=== PATIENT | male | born 1965 | race Caucasian/White ===

== ENCOUNTER → 2024-03-21 15:01 | Outpatient (REF) | payer BC, SELFPAY | LOC: RAD 15:01 | PROVIDERS: ATTENDING PHYSICIAN Surgery Vascular Surgery | DX: I73.9 Peripheral vascular disease, unspecified (principal) | CPT/HCPCS: 93922; 93925 ==

== ENCOUNTER → 2024-09-22 07:55 | Outpatient (REF) | payer BC, SELFPAY | LOC: RAD 07:55 | PROVIDERS: ATTENDING PHYSICIAN Surgery Vascular Surgery; FAMILY PHYSICIAN Family Medicine | DX: I73.9 Peripheral vascular disease, unspecified (principal) | CPT/HCPCS: 93922; 93925 ==

== ENCOUNTER → 2024-10-13 08:21 | Outpatient (REF) | payer BC, SELFPAY | LOC: RAD 08:21 | PROVIDERS: ATTENDING PHYSICIAN Surgery Vascular Surgery; FAMILY PHYSICIAN Family Medicine | DX: I73.9 Peripheral vascular disease, unspecified (principal) | CPT/HCPCS: 75635; Q9967 ==

== ENCOUNTER → 2024-11-17 11:46 | Outpatient (REF) | payer BC, SELFPAY | LOC: DHCBC/DCA 11:46 | PROVIDERS: ATTENDING PHYSICIAN Internal Medicine Cardiovascular Disease; FAMILY PHYSICIAN Family Medicine | DX: Z01.810 Encounter for preprocedural cardiovascular examination (principal); I25.10 Atherosclerotic heart disease of native coronary artery without angina pectoris; I73.9 Peripheral vascular disease, unspecified | CPT/HCPCS: 78452; 93017; A9500; J2785 ==

== ENCOUNTER 2024-12-22 08:55 | Inpatient (IN) | payer BC, SELFPAY ==
[2024-12-19 09:59] VITALS: BMI 35.4
[2024-12-19 11:05] LABS: % Basophils 0.5 % (0-2); % Eosinophils 2.7 % (0-6); % Immature Granulocytes 0.4 % (0-0.5); % Lymphocytes 28.5 % (20.5-51.1); % Neutrophils 60.9 % (42.2-75.2); Absolute Basophils 0.1 10^3/uL (0-0.2); Absolute Eosinophils 0.3 10^3/uL (0-0.7); Absolute Monocytes 0.7 10^3/uL (0.1-0.6); Absolute Neutrophils 6.3 10^3/uL (1.4-6.5); Hematocrit 45.4 % (39.0-52.0); Hemoglobin 15.5 g/dL (13.0-18.0); Mean Corp Hgb Conc. 34.1 g/dL (33.0-37.0); Mean Corpuscular Hgb 32.7 pg (27.0-31.0); Mean Corpuscular Volume 95.8 fL (80.0-94.0); Mean Platelet Volume 9.9 fL (7.4-10.4); Nucleated Red Blood Cells % 0 % (-); Platelet Count 192 10^3/uL (130-400); Red Blood Cell Count 4.74 10^6/uL (4.70-6.10); Red Cell Dist. Width 12.3 % (11.5-14.5); White Blood Cell Count 10.4 10^3/uL (4.8-10.8)
[2024-12-19 11:14] LABS: INR 0.99; PT 13.4 Sec (11.4-14.6)
[2024-12-19 11:15] LABS: APTT 27.5 Sec (23.4-35.0)
[2024-12-19 11:37] LABS: Blood Urea Nitrogen 17 mg/dl (9-20); Calcium 9.5 mg/dl (8.4-10.2); Carbon Dioxide 25 mmol/L (22-30); Chloride 102 mmol/L (98-107); Estimated Creatinine Clearance 91 ml/min; Glucose 123 mg/dl (70-99); Potassium 4.2 mmol/L (3.5-5.1); Sodium 138 mmol/L (135-145); eGFR > 60.00
[2024-12-22] VITALS (13 sets, daily range): BP systolic 87–121; BP diastolic 54–76; BMI 33.8
--- NOTE | 2024-12-22 07:57 | HP.FOC2 ---
Focused History & Physical
Chief Complaint
HPI:
Chief Complaint: Right leg pain/claudication
HPI / Indication for Planned Procedure: 59-year-old male here today for planned right lower extremity bypass and right femoral endarterectomy possible on table angiogram. Patient presents today at baseline health. No recent illnesses or changes in
his health or home medications. Past medical history as noted below
Relevant Past Medical History: Other (COPD, diabetes type 2, CAD, hypertension, hyperlipidemia, history of TIA, open heart surgery 2018, bladder surgery.)
Relevant Social History: Tobacco Use
Relevant Family History: Negative
Relevant Past Surgical History: Positive for (See above)
Review of Systems
Review of Pertinent Systems: All Systems Negative
Medication
See Medication form for detailed medications: Yes
Medication List (including Herbals & OTC):
metoprolol succinate 25 mg tablet,extended release 24 hr 25 mg PO DAILY 12/14/17
rosuvastatin 20 mg tablet 20 mg PO DAILY 12/14/17
famotidine 40 mg tablet 40 mg PO HS 06/09/23
metformin 500 mg tablet 500 mg PO BID 06/09/23
aspirin 81 mg tablet,delayed release 81 mg PO HS 06/11/23
cilostazol 50 mg tablet 50 mg PO BID 06/11/23
Medications Reviewed: Yes
Allergies and Reactions
Patient has Allergies: Yes
Noted Allergies and Reactions:
Allergy/AdvReac Type Severity Reaction Status Date / Time
bee pollen Allergy Swelling Verified 12/13/24 13:30
cat dander Allergy Unknown Verified 12/13/24 13:30
dog dander Allergy Unknown Verified 12/13/24 13:30
No Known Drug Allergies Allergy NA Verified 12/13/24 13:30
shellfish derived Allergy Unknown Verified 12/13/24 13:30
Pertinent Physical Exam
All Other Systems: Negative
Head/Neck: Normal
Lungs: Normal
Heart: Normal
Abdomen: Normal
Extremities: Other
Neurological: Normal
Diagnosis / Assessment
PAD/claudication
Plan / Procedure
Planned right femoral endarterectomy, right lower extremity bypass, possible on table angiogram with Dr. Quick today.
Anesthesia/Sedation to be done by Anesthesia Provider: Yes
[2024-12-22] MEDS: BACTROBAN NASAL 1 GRAM NASAL (09:34)
[2024-12-22] MEDS: NSS 500 IV (09:34)
[2024-12-22] MEDS: PERIDEX 0.12% ORAL RINSE 15 ML PO (09:34)
[2024-12-22 09:46] LABS: Glucose - Point of Care 136 mg/dl (70-99)
--- NOTE | 2024-12-22 11:31 | W.SUR.PREOP ---
Pre-Operative Surgical Note
-
I have examined this patient prior to the performance of the scheduled procedure.
The patient's condition is unchanged from the time of the current History and
Physical and the patient is able to undergo the scheduled procedure.
[2024-12-22 12:39] LABS: Glycohemoglobin (HgbA1c) 6.6 % (4.0-5.6)
[2024-12-22 15:39] LABS: Glucose - Point of Care 146 mg/dl (70-99)
--- NOTE | 2024-12-22 17:02 | W.SUR.POST ---
Surgical Immediate Post Op
Note
Pre Op Diagnosis: PAD/claudication
Post Op Diagnosis: Same
Procedure Performed: Right femoral endarterectomy with saphenous vein patch and right femoral to below-knee popliteal artery bypass with ringed Propaten graft
Primary Surgeon: Abdelrahman
Assist: Brie SEGOVIA
Anesthesia: General
Estimated Blood Loss: 50 cc
Fluids: See anesthesia flowsheet
Drains/Shunts: None
Specimens/Cultures: Right femoral plaque
Doppler/Duplex/Angio (Y/N): Y
Complications: None
Operative Findings: Palpable PT and DP pulse upon completion
[2024-12-22 17:32] LABS: Hematocrit 41.5 % (39.0-52.0); Hemoglobin 14.1 g/dL (13.0-18.0); Mean Corpuscular Hgb 33.1 pg (27.0-31.0); Mean Corpuscular Volume 97.4 fL (80.0-94.0); Mean Platelet Volume 9.6 fL (7.4-10.4); Platelet Count 157 10^3/uL (130-400); Red Blood Cell Count 4.26 10^6/uL (4.70-6.10); Red Cell Dist. Width 12.2 % (11.5-14.5); White Blood Cell Count 15.4 10^3/uL (4.8-10.8)
[2024-12-22 17:49] LABS: Blood Urea Nitrogen 11 mg/dl (9-20); Calcium 8.6 mg/dl (8.4-10.2); Carbon Dioxide 24 mmol/L (22-30); Chloride 102 mmol/L (98-107); Estimated Creatinine Clearance 111 ml/min; Glucose 181 mg/dl (70-99); Potassium 4.3 mmol/L (3.5-5.1); Sodium 135 mmol/L (135-145); eGFR > 60.00
--- NOTE | 2024-12-22 17:54 | OR.RPT ---
Operative Report
Operative Report
PROCEDURE DATE: 12/22/2024
Preoperative diagnosis: Debilitating right lower extremity claudication.
Postoperative diagnosis: Same
Procedure:
1. Exploration of right distal greater saphenous vein.
2. Extensive right ilio-femoral endarterectomy (distaly right EIA, common femoral, profunda) with saphenous vein patch angioplasty.
3. Right femoral to [id number] popliteal artery bypass with 8 mm ringed Propaten graft.
Surgeon: Abdelrahman
Call Center Professional: FABRIZIO Baird, required for all aspects of procedure including assistance with traction/countertraction, following of suture line, assistance with closure.
Complications: None
Anesthesia: General
Indications for procedure:
Debilitating claudication. Patient had difficulty functioning at work. I have strongly recommended risk factor management and exercise regimen. He felt he was exercising and not gaining any headway. He felt very disabled at work and even in his
personal life. We discussed extensively that he had no simple endovascular solution. Therefore surgical risks were discussed extensively. Patient understood all wished to proceed with revascularization strategy. I discussed with him that his
vein was marginal in the right leg. And therefore if vein was not usable I did not wish to bypass to a below the knee tibial target for claudication. Discussed in that setting would do a bypass with prosthetic to the above-knee popliteal artery,
cognizant of the fact that there is some plaque disease and he is behind the knee popliteal artery and origin of tibial. But it did not appear severely flow-limiting based on imaging. In addition I discussed that he had extensive common femoral
and profunda origin plaque/stenosis. Discussed endarterectomy of that as well. All these procedural aspects risk/benefit/alternatives all fully discussed. Patient understood all wished to proceed.
Description of procedure:
Patient was identified brought to the operating room placed on the table in supine position. After the adequate administration of anesthesia he was prepped and draped in the standard surgical fashion. A standard preoperative timeout was undertaken
and everybody was in agreement the plan. A longitudinal incision was made in the right groin with a 15 blade that was carried through skin subcutaneous tissue with electrocautery. I then dissected down to the level of the inguinal ligament. Note
any crossing lymphatic type structures or vessels in my dissection down to the level of the inguinal ligament and the vessels were ligated between silk ties and divided. I carefully then dissected the common femoral artery as it emerged from
underneath inguinal ligament. It was noted to be plaque laden but soft anteriorly. I then continued to dissect on the anterior surface of the common femoral artery until identified the superficial femoral artery. I circumferentially dissected
the superficial femoral artery which was heavily plaque laden and nonpulsatile. I passed a vessel loop around it and used a vessel loop to retract the vessel slightly medially. Now I dissected the profunda origin carefully. Crossing vein branches
were ligated between silk ties and divided to allow exposure of the profunda beyond its first branch point. As such I dissected about 3 cm or 4 cm onto the origin of the profunda. I now was able to get a soft point beyond the first branch point.
A vessel loop was passed around after careful circumferential dissection. Now I dissected underneath the inguinal ligament. There was heavy plaque that extended into the distal external iliac artery. The circumflex iliac arteries were carefully
circumferentially dissected and controlled with Vesseloops. Just proximal to here the distal external iliac artery was soft. I carefully circumferentially dissected and passed a vessel loop around it. In doing this dissection even before I could
fully dissected the circumflex iliac vein or vein of sorrow was avulsed and I had to quickly clip it on either side to control it. This was successfully done.
At this point I decided to turn my attention to the posterior tibial artery exposure. An incision was made about a fingerbreadth inferior to the tibia and the proximal to mid medial calf. It was just carried through the skin at which point I
became concerned that the vein might not be viable in which case I would not want to fully expose the posterior tibial artery and create a muscular dissection. Therefore I then made a separate incision a few centimeters more posterior on the calf
where I marked the continuation of the saphenous vein. I carried this through skin subcutaneous tissue and identified the vein. It was noted to be a very small vein at this juncture. Therefore though the vein was more suitably sized proximally
based on the imaging, the vein was definitely too small here. At this point I felt that this vein would not be usable and at this point I confirmed my plan that I would not be bypassing to the below-knee target vessel with the prosthetic graft.
These incisions were therefore then closed with Vicryl suture and Monocryl subcuticular stitch. Dermabond applied to both the sites. I now made an incision in the medial distal thigh that was carried through the skin subcutaneous tissue. Using
the electrocautery I dissected through the crural fascia layer and then identified the sartorius muscle. This was reflected posteriorly and I continued dissecting to the loose areolar fatty tissue and identified the above the knee popliteal artery.
Carefully I circumferentially dissected approximately. There is still noted to be some plaque in the artery here. However I continues to dissected well distally until I noted good soft artery. I then circumferentially dissected it and passed a
vessel loop around at that point. I listened with a Doppler and there is a reasonable Doppler signal here. Therefore I felt that it was a reasonable target distally. Now I used a Rashad tunneler to create a subsartorial tunnel and passed an 8 mm
ringed [place] Propaten graft through the tunnel.
Now I exposed the greater saphenous vein in my groin incision and made a separate small skip incision to expose a suitable length of it (approximately 10 cm) so that I had reasonable saphenous vein for patch. Given the patient's habitus, given the
fact that I would be using prosthetic graft, I wish to mitigate his infection risk and thereby use a saphenous vein patch instead of a prosthetic patch. Once I dissected and mobilized the suitable length of vein, I give the patient appropriate dose
of heparin (approximately 100 units/kg). After the heparin was allowed to circulate, I clamped the distal profunda with a profunda clamp was soft. Vesseloops on other branches that had been double looped were now tightened. I then placed a clamp
across the distal external iliac artery where it was soft. I now made an arteriotomy on the profundofemoral soft with an 11 blade and started to extended cephalad. (With a Levy scissor). However, I had continued bleeding. Therefore this alerted
me that there was another branch. I therefore quickly dissected posterior at the femoral bifurcation and identified another branch and I passed a vessel loop around it and double looped and tightened it. This controlled the bleeding. At this
point now I continued with my Levy scissor to extend my arteriotomy all the way to the proximal common femoral artery. There was heavy dense coral reef like plaque especially at the femoral bifurcation. The SFA was chronically occluded with heavy
plaque, and the profunda origin had near occlusive heavy plaque. There was dense plaque throughout the common femoral artery as well. I now used a Montrose to create an endarterectomy plane and endarterectomized the plaque starting in the common
femoral and profunda. I was able to tease the plaque out to reasonable endpoint in the profunda. I then grasped the plaque and cut it flush in the common femoral artery. I then grasped it and everted out of the origin of the SFA (everted at least
2 to 3 cm out of the origin of the SFA). The plaque was then sent off for specimen. Any fine debris throughout the endarterectomy field was removed with fine forceps. I then noted my proximal endpoint while the lumen was reasonable there was
still heavy posterior/lateral/medial plaque in the common femoral artery proximally and I felt I would not be able to take good suture bites here. Therefore I then grasped the plaque and used a Montrose to further endarterectomized this plaque and
then teased it out all the way to the level of the clamp (distal external iliac artery). I released my clamp and quickly repositioned it slightly more cephalad. I now inspected my endpoint where the proximal plaque had come out and it was
excellently adherent. There was a nice ring of adherent normal intima at the proximal endpoint that I could see well. At this point is very satisfied. Distally on my profunda endpoint, I elected to place a couple tacking sutures just to make sure
the intima is nicely tacked using 6-0 Prolene tacking sutures. Now I used the greater saphenous vein that had exposed. I ligated proximally distally with heavy silk ties and clips. I then transected proximally distally and inflated open. There
is a very reasonable vein. I therefore then used this as a patch. I sewed a patch angioplasty/profundoplasty using a running 5-0 Prolene suture. Prior to completing and tying down my suture line I backbled the [place] arteries. I then completed
and tied in my suture line. I briefly released my clamps. A couple small bleeding points on the suture line were repaired with 6-0 Prolene [id number] suture. Now that hemostasis I reclamped the distal external iliac and profunda arteries. I
then made a patchotomy with an 11 blade on the vein patch. I extended with the Levy scissor. I now beveled the 8 mm ringed graft. I sewed an end-to-side anastomosis between the graft and the vein patch using a running [place] CV 6 suture. I
completed and tied down my suture line and then clamped the graft. I then released flow in the [place] arteries. Hemostasis was noted. I briefly flushed out the graft to de-air it. Now I clamped the graft in the groin incision. Now I turned my
attention again to the distal artery which was the above-knee popliteal artery. I placed a clamp on the artery distally where it was soft. I tightened my double looped vessel loop proximally on the artery. I now made an arteriotomy with 11 blade
and extended using a Levy scissor. There was some mild plaque but no significant luminal narrowing. And it was not severely hardened plaque. I now trimmed and beveled and de-ringed the distal aspect of the graft and sewed an end-to-side
anastomosis using a running [place] CV 6 suture. Prior to completing and tying down my suture line I backbled the [place] artery and flushed out the graft. I then completed and tied down my suture line. Now I released clamps on the [place] vessels and
then the graft clamp. There is excellent pulsatile flow into the popliteal artery beyond the anastomosis. Doppler confirmed an excellent significantly graft augmented signal. There was excellent significantly graft augmented signals at the
posterior tibial and dorsalis pedis on the foot. I actually could palpate a DP and PT pulse now on the foot. At this point is very satisfied. All incision sites were now irrigated. Meticulously hemostasis was achieved. Protamine was given to
reverse the heparin. The arterial exposure sites were closed in layers using 2-0 Vicryl deeper layers followed by 3-0 Vicryl deep dermal running layer followed by 4 Monocryl subcuticular suture layer. The small counterincision for saphenectomy was
closed with 3-0 Vicryl and 4-0 Monocryl running sutures as well. Dermabond and dressings were applied. The patient tolerated the procedure well. All sponge, needle, instrument counts were correct at the end of the case. The patient was
transported to the recovery room in good condition.
--- NOTE | 2024-12-22 19:19 | PTCARENOTE ---
Received pt from PACU into ICU rm [id number] @ 1830. Neurovascular check completed w HIGH SCHOOL MATH TUTOR- see flow sheet. Report given to oncoming SCRAPER LOADER OPERATOR and neurovascular checks completed @ bedside w nightshift RN.
[2024-12-22] MEDS: NOVOLOG FLEXPEN-LOW RESISTANCE SC (19:22)
[2024-12-22] MEDS: ROXICODONE 5 MG PO (19:43)
[2024-12-22] MEDS: HEPARIN 5000 UNITS SC (19:43)
[2024-12-22] MEDS: NSS 1000 IV (19:44)
[2024-12-22 20:18] LABS: TSH Reflex To Free T4 0.65 uIU/ml (0.47-4.68)
--- NOTE | 2024-12-22 20:31 | PTCARENOTE ---
Received patient AAOx3, following commands, drowsy. 7/10 pain in RLE, oxycodone given. Q1 neurovascular checks ongoing. Normal sinus, 70s, +1 LE edema. Doppler DP and PT pulses b/l. BP 120s-130s/60s-70s. Left radial judy zeroed, leveled, and
flushed. Lung sounds clear, shallow, on 4 liters nasal cannula saturating 92%. Positive bowel sounds, abdomen soft, round, nontender. Thermistor king in place draining yellow urine, normothermic. Right groin covered with primaseal dressing, CDI. 2
Incisions on RLE approximated, surgiglue intact, ecchymotic around incision. PIVs patent, WNL. Warm blankets and crackers with diet gingerale provided, call dominguez within reach.
[2024-12-22 20:37] LABS: Vitamin B12 237 pg/ml (239-931)
[2024-12-22] MEDS: FLOMAX 0.4 MG PO (21:07)
[2024-12-22] MEDS: PEPCID 40 MG PO (21:07)
[2024-12-22] MEDS: ASPIR LOW (ENTERIC COATED) 81 MG PO (21:07)
[2024-12-22] MEDS: DILAUDID 0.5 MG IV (21:13)
[2024-12-22 21:16] LABS: Glucose - Point of Care 184 mg/dl (70-99)
[2024-12-22] MEDS: NOVOLOG FLEXPEN 1 UNITS SC (22:09)
[2024-12-23] VITALS (9 sets, daily range): BP systolic 92–130; BP diastolic 59–73; PULSE 72; O2SAT 92; BMI 34.2
--- NOTE | 2024-12-23 00:08 | PTCARENOTE ---
Patient assessment unchanged from previous, covered with 1 unit of insulin. Call dominguez within reach, resting comfortably.
[2024-12-23] MEDS: DILAUDID 0.5 MG IV ×2 (04:39→16:38)
[2024-12-23] MEDS: NSS 1000 IV (04:39)
[2024-12-23 05:08] LABS: Hematocrit 37.9 % (39.0-52.0); Hemoglobin 13.3 g/dL (13.0-18.0); Mean Corp Hgb Conc. 35.1 g/dL (33.0-37.0); Mean Corpuscular Hgb 33.7 pg (27.0-31.0); Mean Corpuscular Volume 95.9 fL (80.0-94.0); Mean Platelet Volume 9.9 fL (7.4-10.4); Platelet Count 152 10^3/uL (130-400); Red Blood Cell Count 3.95 10^6/uL (4.70-6.10); Red Cell Dist. Width 12.1 % (11.5-14.5); White Blood Cell Count 17.8 10^3/uL (4.8-10.8)
[2024-12-23 05:18] LABS: INR 1.06; PT 14.3 Sec (11.4-14.6)
[2024-12-23 05:19] LABS: APTT 27.4 Sec (23.4-35.0)
[2024-12-23 05:35] LABS: Blood Urea Nitrogen 12 mg/dl (9-20); Calcium 8.5 mg/dl (8.4-10.2); Carbon Dioxide 26 mmol/L (22-30); Chloride 103 mmol/L (98-107); Estimated Creatinine Clearance 123 ml/min; Glucose 150 mg/dl (70-99); Potassium 4.4 mmol/L (3.5-5.1); Sodium 134 mmol/L (135-145); eGFR > 60.00
--- NOTE | 2024-12-23 06:11 | PTCARENOTE ---
Labs sent, dilaudid given x2 for pain per order, otherwise patient assessment unchanged from previous.
--- NOTE | 2024-12-23 07:30 | CON.INTV ---
Consultation
Consultation Request
Date/Time Consultation Requested: 12/22/24
Date/Time Consultation Performed: 12/23/24
Performing Provider: Avi
Reason for Consultation: Vasc Postop
Medical History
-
History of Present Illness:
Patient is a 59-year-old male here with history of COPD, diabetes type 2, CAD, hypertension, hyperlipidemia, history of TIA, open heart surgery 2018, bladder surgery presenting today for planned vascular procedure. Underwent right lower extremity
bypass and right femoral endarterectomy completed 12/22/24. Admitted to ICU for observation.
Past Medical History
Past Medical History: Other
Social History
Tobacco: Smoker
Alcohol: None
Drug: None
Allergies / Home Medications
Allergies
Allergy/AdvReac Type Severity Reaction Status Date / Time
bee pollen Allergy Swelling Verified 12/22/24 09:12
cat dander Allergy Unknown Verified 12/22/24 09:12
dog dander Allergy Unknown Verified 12/22/24 09:12
No Known Drug Allergies Allergy NA Verified 12/22/24 09:12
shellfish derived Allergy Unknown Verified 12/22/24 09:12
Home Medications
�Medication �Instructions �Recorded �Confirmed �Last Taken �Type
metoprolol succinate 25 mg 25 mg PO DAILY 12/14/17 12/22/24 12/21/24 22:00 History
tablet,extended release 24 hr
rosuvastatin 20 mg tablet 20 mg PO DAILY 12/14/17 12/22/24 12/21/24 22:00 History
famotidine 40 mg tablet 40 mg PO HS 06/09/23 12/22/24 12/21/24 22:00 History
metformin 500 mg tablet 500 mg PO BID 06/09/23 12/22/24 12/21/24 08:00 History
aspirin 81 mg tablet,delayed 81 mg PO 06/11/23 12/22/24 12/21/24 22:00 History
release
tamsulosin 0.4 mg capsule 0.4 mg PO HS 0212/22/24 12/20/24 22:00 History
Review of Systems
-
History Source: Patient
All other systems: Negative unless noted
Vitals / Labs / Diagnostic Testing
Vital Signs
Temp Pulse Resp BP Pulse Ox
98.3 F 69 15 92/64 93
12/23/24 07:03 12/23/24 06:00 12/23/24 06:00 12/23/24 04:00 12/23/24 06:00
Lab Data
12/23/24 04:30
12/23/24 04:30
Laboratory Results
12/23/24
04:30
PT 14.3
INR 1.06
APTT 27.4
Diagnostic Testing:
Physical Exam
-
HEENT: Normocephalic, Anicteric and Moist Mucous Membranes
Cardiovascular: S1/S2 and Regular Rhythm
Respiratory: Clear and Non-Labored Respirations
GI: Soft, Non Distended and Non Tender
Neurology: Awake, Alert, Oriented and No Motor Deficits
Skin: Warm, Dry and Good Color
General: Comfortable and Other (NAD)
Assessment
-
Patient is a 59-year-old male here with history of COPD, diabetes type 2, CAD, hypertension, hyperlipidemia, history of TIA, open heart surgery 2018, bladder surgery presenting today for planned vascular procedure. Underwent right lower extremity
bypass and right femoral endarterectomy completed 12/22/24. Admitted to ICU for observation.
RLE Claudication s/p Exploration of right distal greater saphenous vein/Extensive right ilio-femoral endarterectomy (distaly right EIA, common femoral, profunda) with saphenous vein patch angioplasty/Right femoral to [id number] popliteal artery
bypass with 8 mm ringed Propaten graft 12/22/24
Leukocytosis
Hyperglycemia
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
PAD
COPD
DM2
CAD
HTN
HLD
Hx of TIA
Plan
Patient is s/p R FEA by vascular surgery service, POD #1
Continue observation following procedure
Follow neurovascular checks per protocol
Follow BP monitoring and parameters as set by primary team
Cardiac history noted
Monitor on telemetry
Pain control per protocol
RASS goal 0
No prior history of pulmonary disease, is a current smoker
No chest imaging for review
No prior PFTs for review
Encouraged IS
Smoking cessation encouraged
Diet advancement per protocol
Aspiration precautions
GI prophylaxis if indicated for stress ulcer prevention in the critically ill
Creat at baseline, follow UO
Critical I/Os
Void trials
Replete electrolytes as needed
No signs/symptoms suspicious for infectious etiology at this time
Will observe off antibiotics for now
Follow temperatures/CBC
Hb and platelets postoperatively stable
DVT prophylaxis recommended if not contraindicated based on procedural history -- heparin SQ and mechanical SCDs
Encouraged OOB/PT/OT/ambulation once cleared by surgical team
Transfer to floors per team, we will sign off upon transfer.
Diagnostic Data
Chest X-Ray:
CT Scan: AP 10/13/24- 1. RIGHT LOWER EXTREMITY: 50-75% stenosis of the distal common femoral artery. Approximately 75% stenosis at the origin of the profunda femoris artery. Right SFA is occluded at its origin and along its length, with
reconstitution of the popliteal artery. Multifocal 50-75% stenoses within the popliteal artery. There is a common trunk of the anterior tibial and peroneal arteries, and the posterior tibial artery arises from the popliteal artery directly. Heavily
calcified plaque within the infrapopliteal arteries, which appear to remain patent to the level of the ankle.
2. LEFT LOWER EXTREMITY: Approximately 50% stenosis within the common femoral artery. SFA is occluded at its origin and along its length, with reconstitution of the popliteal artery. Multifocal 50-75% stenoses of the left popliteal artery. Anterior
tibial artery appears to be occluded near the midportion. Posterior tibial and peroneal arteries appear to be patent to the level of the ankle.
3. Cholelithiasis without evidence of acute cholecystitis.
Echo:
Stress testing 11/17/24- Inconclusive ECG for ischemia given the pharmacological study. Predominantly fixed basal, mid, and apical inferior and inferolateral defect consistent with infarction with minimal residual ischemia
Systolic function is low normal. The ejection fraction is 51% with inferolateral hypokinesis%. Stress Risk is moderate risk study (1 - 3% [place] or /year) due to pharmacologic agent used and perfusion involving.
PFT's:
Reports and relevant images were personally reviewed.
Critical Care time 50 mins -- this includes review of history, physical exam, medications, hemodynamic/O2 parameters, laboratory data, imaging and discussions with care team, pharmacy, nursing and patient.
[2024-12-23] MEDS: NOVOLOG FLEXPEN-LOW RESISTANCE 1 UNITS SC (07:45)
[2024-12-23] MEDS: TOPROL XL 25 MG PO (07:46)
[2024-12-23] MEDS: GLUCOPHAGE 500 MG PO ×2 (07:47→16:37)
[2024-12-23] MEDS: CRESTOR 20 MG PO (07:47)
[2024-12-23] MEDS: HEPARIN 5000 UNITS SC ×2 (07:47→21:16)
--- NOTE | 2024-12-23 07:48 | W.PN.VS ---
Addendum entered and electronically signed by Jagjit Quick MD 12/23/24 08:11:
Seen and examined with FABRIZIO Woodard. Agree with findings as noted below. Patient without significant complaints (some incisional soreness, but otherwise no significant complaints). Notes that his foot feels warmer to him subjectively. Right groin
dressing clean dry and intact. Groin is soft and flat. No hematoma noted. Upper thigh and below knee calf incisions clean dry and intact. No hematomas. Thigh and calf are soft. Right foot is warm with 2+ palpable PT pulse, 1+/2+ palpable DP
pulse. Labs reviewed. Plan/as discussed and noted below.
Original Note:
Today's Communication / Plan
-
Patient seen and examined at bedside with Dr. Jagjit Quick, below plan reviewed with attending.
Assessment/Plan
-
Assessment: 59-year-old male POD #1 Exploration of right distal greater saphenous vein. Extensive right ilio-femoral endarterectomy (distaly right EIA, common femoral, profunda) with saphenous vein patch angioplasty. Right femoral to [id number]
popliteal artery bypass with 8 mm ringed Propaten graft.
Plan:
Discontinue arterial line
Discontinue IV fluids
Discontinue Romo catheter
Out of bed to chair with progression to ambulation later this afternoon, can work with physical therapy later this afternoon
Possible downgrade to telemetry this afternoon
Encourage incentive spirometry
Subjective Data
-
Date of Service: December 23, 2024
Patient seen and examined at bedside, offers no complaints. Reports adequate post operative pain management with current pain medication regimen. Denies nausea, vomiting, fever, and chills.
Objective Data
-
Vital Signs
Temp Pulse Resp BP Pulse Ox
98.3 F 79 15 124/64 93
12/23/24 07:03 12/23/24 07:46 12/23/24 06:00 12/23/24 07:46 12/23/24 06:00
Intake and Output
12/22/24 12/23/24 12/24/24
06:59 06:59 06:59
Intake Total 980 / 980
Output Total 1300 / 1300
Balance -320 / -320
Intake:
IV fluids (Total) 980 / 980
Nss 1,000 ml @ 80 mls/hr IV . 880 / 880
[id number] Rx#:[id number]
normosol 100 / 100
Output:
Urine, Romo 1300 / 1300
Lab Results
12/23/24 04:30
12/23/24 04:30
Calcium 8.5 mg/dl (8.4-10.2) 12/23/24 04:30
Physical Exam
-
No apparent distress, resting in bed comfortably
No tachycardia
No dyspnea on room air
ABD rotund, non-tender, non-distended
RLE groin dressings clean dry and intact, no evidence of hematoma or edema. Right lower extremity distal calf incisions all CDI with Exofin glue intact.
Right foot warm, right DP pulse by Doppler and PT palpable
Romo draining clear yellow urine
[2024-12-23 07:56] LABS: Glucose - Point of Care 195 mg/dl (70-99)
[2024-12-23] MEDS: ROXICODONE 5 MG PO ×2 (08:21→21:16)
--- NOTE | 2024-12-23 09:07 | PTCARENOTE ---
Assumed care of pt. approx 0700.
Resting in bed, Vascular rounds completed. Art line, Christiano Romo. fluids D/C.
Pulses intact via strong signal, weak on palpation, no neuropathy reported subjectively by patient other then warmness in foot.
Normocephalic, Anicteric, follows all commands.
NSR w.o ectopy noted, Normotensive via NIBP, Normothermic.
Due to void approx 1430.
All questions answered will work on getting OOB to chair today.
--- NOTE | 2024-12-23 10:07 | CM ---
Pt admitted yesterday to ICU following planned right lower extremity bypass and right femoral endarterectomy.
CM called pt's to complete IA.
Morgan lives with his , Maylin in a 2 story home with 2 entry steps. Bedroom is on the second level with full bath. 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 His also works timekeeper supervisor, so Morgan will be home alone at discharge.
Maylin advised that per the physicians, pt will not be able to climb stairs initially (approx 2 weeks), and plan is for him to stay on the first floor with a powder room accessible. There is no bed on the first floor, so Morgan and Maylin were thinking
he could sleep on the couch, or possibly purchase an air mattress. There is also a recliner on the first floor that may be comfortable, and can elevate his legs.
Plan: PT/OT evaluations and follow for discharge planning needs; Consider VN.
PCP: Yfn Brooke
Pharmacy: [facility] on [address] in [place]
--- NOTE | 2024-12-23 10:47 | W.PA-PDMP ---
[place]-PDMP
-
Checked the [place]- Prescription Drug Monitoring Program website, no red flags identified; safe to proceed with prescription.
--- NOTE | 2024-12-23 12:24 | VNURNOTE ---
Home Health Liaison spoke with patient's spouse Maylin to discuss [facility] nurse/therapy, visits, schedule and homebound status. She is agreeable and understands that visits at home will be 2-3 x per week to assess and teach medical management. Spouse is
aware that [facility] will contact them for start of care in 1-2 days after discharge from . [facility] referral completed in [facility].
[2024-12-23 13:00] LABS: Glucose - Point of Care 125 mg/dl (70-99)
[2024-12-23] MEDS: NOVOLOG FLEXPEN-LOW RESISTANCE SC ×2 (13:15→16:42)
[2024-12-23 16:53] LABS: Glucose - Point of Care 125 mg/dl (70-99)
--- NOTE | 2024-12-23 20:30 | PTCARENOTE ---
assumed care, pt Ox3, c/o right groin pain that worsened c ambulation, meds given per MAR, NSR on the monitor, doppler L pedal, + pulse R pedal lungs clear, BSx4 pt ambulated to bathroom c RW, IV per worklist, family @ bedside and updated, call dominguez
within reach, pt able to make needs known, otherwise refer to documentation.
[2024-12-23] MEDS: PEPCID 40 MG PO (21:17)
[2024-12-23] MEDS: FLOMAX 0.4 MG PO (21:17)
[2024-12-23] MEDS: ASPIR LOW (ENTERIC COATED) 81 MG PO (21:17)
[2024-12-23 21:26] LABS: Glucose - Point of Care 126 mg/dl (70-99)
[2024-12-24] MEDS: DILAUDID 0.5 MG IV (02:55)
[2024-12-24 03:01] VITALS: BP 113/68
[2024-12-24 03:28] LABS: Hematocrit 38.8 % (39.0-52.0); Hemoglobin 13.3 g/dL (13.0-18.0); Mean Corp Hgb Conc. 34.3 g/dL (33.0-37.0); Mean Corpuscular Hgb 32.8 pg (27.0-31.0); Mean Corpuscular Volume 95.6 fL (80.0-94.0); Platelet Count 149 10^3/uL (130-400); Red Blood Cell Count 4.06 10^6/uL (4.70-6.10); Red Cell Dist. Width 12.2 % (11.5-14.5); White Blood Cell Count 15.2 10^3/uL (4.8-10.8)
[2024-12-24 03:42] LABS: Blood Urea Nitrogen 14 mg/dl (9-20); Calcium 8.6 mg/dl (8.4-10.2); Carbon Dioxide 25 mmol/L (22-30); Chloride 103 mmol/L (98-107); Estimated Creatinine Clearance 123 ml/min; Glucose 123 mg/dl (70-99); Potassium 3.9 mmol/L (3.5-5.1); Sodium 134 mmol/L (135-145); eGFR > 60.00
[2024-12-24 07:00] VITALS: BP 115/66
[2024-12-24 07:30] LABS: Glucose - Point of Care 135 mg/dl (70-99)
[2024-12-24] MEDS: NOVOLOG FLEXPEN-LOW RESISTANCE SC (07:41)
--- NOTE | 2024-12-24 07:43 | W.PN.VS ---
Today's Communication / Plan
-
d/c home
Assessment/Plan
-
Assessment: 59-year-old male POD #2 Exploration of right distal greater saphenous vein. Extensive right ilio-femoral endarterectomy (distaly right EIA, common femoral, profunda) with saphenous vein patch angioplasty. Right femoral to [id number]
popliteal artery bypass with 8 mm ringed Propaten graft.
Plan:
cont ambulation
ok for discharge
instructed to call with questions
Subjective Data
-
Date of Service: December 24, 2024
doing well
no complaints
pain controlled
ambulating
Objective Data
-
Vital Signs
Temp Pulse Resp BP Pulse Ox
98.8 F 68 20 113/68 95
12/24/24 07:11 12/24/24 06:00 12/24/24 06:00 12/24/24 03:01 12/24/24 03:00
Intake and Output
12/23/24 12/24/24 12/25/24
06:59 06:59 06:59
Intake Total 980 / 1160 920 / 920
Output Total 1300 / 1400 100 / 100
Balance -320 / -240 820 / 820
Intake:
Oral fluids 840 / 840
IV fluids (Total) 980 / 1060 80 / 80
Nss 1,000 ml @ 80 mls/hr IV . 880 / 960 80 / 80
[id number] [facility] Rx#:[id number]
normosol 100 / 100
Output:
Urine, Romo 1300 / 1400 100 / 100
Urine, Voided 0 / 0
Other:
Number of approximated MODERATE 2
amounts of urine
Number of approximated LARGE 1
amounts of urine
Lab Results
12/24/24 03:00
12/24/24 03:00
Calcium 8.6 mg/dl (8.4-10.2) 12/24/24 03:00
Physical Exam
-
inc c/d/i
+PT pulse
looks greast
[2024-12-24] MEDS: CRESTOR 20 MG PO (07:48)
[2024-12-24] MEDS: HEPARIN 5000 UNITS SC (07:49)
[2024-12-24] MEDS: TOPROL XL 25 MG PO (07:49)
[2024-12-24] MEDS: GLUCOPHAGE 500 MG PO (07:49)
== END 2024-12-24 09:49 | disposition home health service (06) | DRG 272 ==
LOC: ICU 08:55
PROVIDERS: Nurse Practitioner; Nurse Practitioner Acute Care; ADMITTING PHYSICIAN Surgery Vascular Surgery; FAMILY PHYSICIAN Family Medicine; OTHER PHYSICIAN Internal Medicine
PROC: 04U Lower Arteries, Supplement (ICD-10-PCS; 2024-12-22)
PROC: 04CH0ZZ Extirpation of Matter from Right External Iliac Artery, Open Approach (ICD-10-PCS; 2024-12-22)
PROC: 041K0JL Bypass Right Femoral Artery to Popliteal Artery with Synthetic Substitute, Open Approach (ICD-10-PCS; 2024-12-22)
PROC: 06JY0ZZ Inspection of Lower Vein, Open Approach (ICD-10-PCS; 2024-12-22)
DX: E11.51 Type 2 diabetes mellitus with diabetic peripheral angiopathy without gangrene (principal); I70.211 Atherosclerosis of native arteries of extremities with intermittent claudication, right leg; J44.9 Chronic obstructive pulmonary disease, unspecified; E11.65 Type 2 diabetes mellitus with hyperglycemia; I10 Essential (primary) hypertension; I25.10 Atherosclerotic heart disease of native coronary artery without angina pectoris; Z79.84 Long term (current) use of oral hypoglycemic drugs; Z79.82 Long term (current) use of aspirin; Z86.73 Personal history of transient ischemic attack (TIA), and cerebral infarction without residual deficits; F17.210 Nicotine dependence, cigarettes, uncomplicated; Z95.1 Presence of aortocoronary bypass graft; Z95.5 Presence of coronary angioplasty implant and graft; E78.2 Mixed hyperlipidemia; E66.9 Obesity, unspecified; Z68.35 Body mass index [BMI] 35.0-35.9, adult; D72.829 Elevated white blood cell count, unspecified
CPT/HCPCS: 88304; 88311; 35656; 36415; 80048; 82607; 82962; 83036; 84443; 85025; 85027; 85610; 85730; 86850; 86900; 86901; 97116; 97162; 99406; C1768

== ENCOUNTER → 2025-01-18 07:53 | Outpatient (REF) | payer BC, SELFPAY | LOC: RAD 07:53 | PROVIDERS: ATTENDING PHYSICIAN Surgery Vascular Surgery; FAMILY PHYSICIAN Family Medicine | DX: I73.9 Peripheral vascular disease, unspecified (principal) | CPT/HCPCS: 93922; 93925; 93978 ==

== ENCOUNTER → 2025-07-21 06:54 | Outpatient (REF) | payer BC, SELFPAY | LOC: RAD 06:54 | PROVIDERS: ATTENDING PHYSICIAN Surgery Vascular Surgery; FAMILY PHYSICIAN Family Medicine | DX: I73.9 Peripheral vascular disease, unspecified (principal) | CPT/HCPCS: 93922; 93925 ==